=== PATIENT | male | born 1965 | race African-American/Black ===

== ENCOUNTER 2022-07-03 19:15 | Emergency (ER) | payer OTHER ==
[~2022-07-03] VITALS: Ht 190.5 cm; Wt 107.0 kg
[2022-07-03] MEDS ORDERED: METHOCARBAMOL 500MG TABLET PO ONE (23:45)
[2022-07-03] MEDS ORDERED: KETOROLAC 30MG/ML VIAL IM ONE (23:45)
[2022-07-04] MEDS ORDERED: IBUP-2029 MT (00:48)
[2022-07-04] MEDS ORDERED: METH-653 MT (00:49)
[2022-07-04 01:20] VITALS: BP 136/91
== END 2022-07-04 01:28 | disposition home or self-care (01) ==
LOC: ER 19:15
DX: S29.012A Strain of muscle and tendon of back wall of thorax, initial encounter (principal); V49.49XA Driver injured in collision with other motor vehicles in traffic accident, initial encounter; Y93.89 Activity, other specified; Y92.89 Other specified places as the place of occurrence of the external cause; Y99.8 Other external cause status; J45.909 Unspecified asthma, uncomplicated; I10 Essential (primary) hypertension
CPT/HCPCS: 71046; 93005; 99283; J1885